=== PATIENT | male | born 1970 | race Hispanic/Latino ===

== ENCOUNTER 2016-08-27 01:41 | Emergency (ER) | payer OTHER ==
[2016-08-27] MEDS ORDERED: Sodium Chloride 0.9% 1,000 ML ONE (01:57)
[2016-08-27 02:00] VITALS: PULSE 75; O2SAT 98
[2016-08-27] MEDS ORDERED: Sodium Chloride 0.9% 1,000 ML IV ONE (02:12)
--- NOTE | 2016-08-27 02:12 | C.PDOC ---
History Of Present Illness pt presents with sudden onset of left flank pain, radiating into groin and back. No f/c/n/v. Sharp stabbing pain. Time Seen by Provider: 08/27/16 02:11 Chief Complaint (Nursing): Abdominal Pain History Per: Patient History/Exam Limitations: no limitations Onset/Duration Of Symptoms: Hrs Current Symptoms Are (Timing): Still Present Context: Other Severity: Severe Pain Scale Rating Of: 6 Location Of Pain/Discomfort: LLQ Radiation Of Pain To:: Back Quality Of Discomfort: Sharp Associated Symptoms: denies: Fever, Chills, Nausea Exacerbating Factors: None Alleviating Factors: None Last Bowel Movement: Yesterday Recent travel outside of the [place]: No Additional History Per: Family Past Medical History Reviewed: Historical Data, Nursing Documentation, Vital Signs Vital Signs: Last Vital Signs Temp Pulse 75 08/27/16 01:58 Resp 22 08/27/16 01:58 BP Pulse Ox 98 08/27/16 02:26 Family History: States: No Known Family Hx - Social History Hx Alcohol Use: No Hx Substance Use: No - Immunization History Hx Tetanus Toxoid Vaccination: No Hx Influenza Vaccination: No Hx Pneumococcal Vaccination: No Review Of Systems Constitutional: Negative for: Fever, Chills Cardiovascular: Negative for: Chest Pain Respiratory: Negative for: Shortness of Breath Gastrointestinal: Positive for: Abdominal Pain. Negative for: Nausea, Vomiting , Constipation Genitourinary: Negative for: Dysuria Musculoskeletal: Positive for: Back Pain Skin: Negative for: Rash, Lesions, Jaundice, Bruising Neurological: Negative for: Weakness Psych: Positive for: Anxiety Physical Exam - Physical Exam Appears: Non-toxic, In Acute Distress Skin: Warm, Dry Head: Normacephalic Eye(s): bilateral: Normal Inspection Oral Mucosa: Moist Neck: Supple Chest: Symmetrical Cardiovascular: Rhythm Regular Respiratory: No Rales, No Rhonchi, No Wheezing Gastrointestinal/Abdominal: Soft, Tenderness (llq), No Distention, No Guarding, No Rebound Back: CVA Tenderness Extremity: Normal ROM Extremity: Bilateral: Atraumatic, Normal Color And Temperature, Normal ROM Neurological/Psych: Oriented x3, Normal Speech, Normal Cognition Gait: Steady ED Course And Treatment - Laboratory Results Result Diagrams: 08/27/16 02:34 08/27/16 02:34 O2 Sat by Pulse Oximetry: 98 Pulse Ox Interpretation: Normal Progress Note: blood work,. toradol, ivf, ct scan Reevaluation Time: 03:11 Reassessment Condition: Improved Disposition Counseled Patient/Family Regarding: Studies Performed, Diagnosis, Need For Followup, Rx Given - Disposition Referrals: Chano Guillory Jr., MD [Staff Provider] - Disposition: HOME/ ROUTINE Disposition Time: 02:12 Condition: FAIR Prescriptions: Ibuprofen [Motrin] 1 tab PO TID PRN #20 tab PRN Reason: Pain Ondansetron ODT [Zofran ODT] 1 odt PO BID PRN #10 odt PRN Reason: Nausea/Vomiting oxyCODONE/Acetaminophen [Percocet 5/325 mg Tab] 1 tab PO QID PRN #12 tab PRN Reason: Pain Tamsulosin [Flomax] 0.4 mg PO DAILY #15 cap Instructions: Kidney Stones (DC), Renal Colic (GEN) - Clinical Impression Clinical Impression: Renal colic on left side, Kidney stone on left side
[2016-08-27 02:37] LABS: BASO # 0.1 K/uL (0.0-0.2); BASO % 0.7 % (0.0-2.0); EOS # 0.1 K/uL (0.0-0.7); HEMATOCRIT 45.8 % (35.0-51.0); LYMPH # 2.3 K/uL (1.0-4.3); LYMPH % 20.9 % (20.0-40.0); MEAN CELL VOLUME 86.2 fL (80.0-94.0); MEAN CORPUSCULAR HEMOGLOBIN 29.5 pg (27.0-31.0); MEAN CORPUSCULAR HGB CONC 34.3 g/dL (33.0-37.0); MONO # 0.7 K/uL (0.0-0.8); MONO % 6.5 % (0.0-10.0); RED CELL DISTRIBUTION WIDTH 13.5 % (11.5-14.5); WHITE BLOOD COUNT 11.2 K/uL (4.8-10.8)
[2016-08-27 02:44] LABS: CHLORIDE 103 mmol/L (98-107)
[2016-08-27 02:45] LABS: POTASSIUM 3.9 mmol/L (3.6-5.2); SODIUM 137 mmol/L (132-148)
[2016-08-27 02:47] LABS: ALB/GLOB RATIO 1.5 (1.0-2.1); ALKALINE PHOSPHATASE 77 U/L (38-126); AST/SGOT 67 U/L (17-59); BILIRUBIN,TOTAL 0.9 mg/dL (0.2-1.3); BLOOD UREA NITROGEN 18 mg/dL (9-20); CARBON DIOXIDE 21 mmol/L (22-30); GFR AFRICAN-AMERICAN > 60; TOTAL PROTEIN 7.6 g/dL (6.3-8.3)
[2016-08-27 02:48] LABS: ALT/SGPT 104 U/L (21-72); CALCIUM 8.4 mg/dl (8.6-10.4); GLUCOSE,RANDOM 138 mg/dL (75-110)
[2016-08-27 03:38] VITALS: BP 140/78; RESP 18; TEMP 98.4
--- NOTE | 2016-08-27 08:22 | CT ---
PROCEDURE: CT Abdomen and Pelvis without intravenous contrast HISTORY: abd pain COMPARISON: None. TECHNIQUE: Axial and reformatted coronal and sagittal CT images of the abdomen and pelvis were obtained without IV or oral contrast administration.. Contrast Dose: 0 Radiation dose: Total exam DLP = 588.36 mGy-cm. This CT exam was performed using one or more of the following dose reduction techniques: Automated exposure control, adjustment of the mA and/or kV according to patient size, and/or use of iterative reconstruction technique. FINDINGS: LOWER THORAX: No evidence of acute pathology. LIVER: [id number] hepatomegaly is noted. Patchy foci of low attenuation seen in the liver suggestive but nonspecific for fatty liver infiltration. GALLBLADDER AND BILE DUCTS: Unremarkable. PANCREAS: Unremarkable. No gross lesion or ductal dilatation. SPLEEN: Unremarkable. ADRENALS: Unremarkable. No mass. KIDNEYS AND URETERS: 4.5 millimeter nonobstructing calculus at the lower pole of the right kidney. 2.5 millimeter nonobstructing calculus at the midpole right kidney. Mild left hydronephrosis and hydroureter up to the bone UV junction. Two small punctate calcifications seen in the upper pole and lower pole of the left kidney suggestive of nonobstructing calculi. Mild left perinephric stranding seen. 3 millimeter calculus seen at the left posterior bladder likely just passed from the collecting system of the left kidney. VASCULATURE: Unremarkable. No aortic aneurysm. BOWEL: Unremarkable. No obstruction. No gross mural thickening. APPENDIX: No evidence of appendicitis P PERITONEUM: Unremarkable. No free fluid. No free air. LYMPH NODES: Unremarkable. No enlarged lymph nodes. BLADDER: 3 millimeter calculus seen at the left posterior bladder likely just passed from the left ureter. REPRODUCTIVE: Mildly enlarged prostate. BONES: No acute fracture. OTHER FINDINGS: None. IMPRESSION: Mild left hydronephrosis and hydroureter up to the UV junction. 3 millimeter calculus at the left posterior bladder likely just passed from the left ureter. Mild left perinephric stranding. Bilateral nonobstructing renal calculi. The largest calculus seen at the lower pole of the right kidney measures 4.7 millimeter. No evidence of right hydronephrosis. Heterogeneous patchy attenuation of the liver likely due to fatty infiltration. [id number] hepatomegaly. Preliminary report was submitted by [facility].
== END 2016-08-27 03:38 | disposition home or self-care (01) ==
LOC: C.ER 01:41
DX: N13.2 Hydronephrosis with renal and ureteral calculous obstruction (principal)
CPT/HCPCS: 74176; 80053; 83690; 85025; 96361; 96374; 96375; 99284; J1885; J2270; J2405; J7040